=== PATIENT | male | born 1995 | race Caucasian/White ===

== ENCOUNTER 2018-06-25 18:12 | Emergency (ER) | payer SELFPAY ==
[~2018-06-25] VITALS: Ht 170.2 cm; Wt 72.7 kg
[2018-06-25 18:28] VITALS: BP 129/75
== END 2018-06-25 19:04 | disposition left against medical advice (07) ==
LOC: EMS 18:14
DX: R42 Dizziness and giddiness (principal); F12.90 Cannabis use, unspecified, uncomplicated; Z53.21 Procedure and treatment not carried out due to patient leaving prior to being seen by health care provider
CPT/HCPCS: 93005